=== PATIENT | female | born 1980 | race Caucasian/White ===

== ENCOUNTER 2018-04-08 13:13 | Emergency (ER) | payer OTHER ==
[~2018-04-08] VITALS: Ht 167.6 cm; Wt 72.6 kg
[~2018-04-08 13:13] MED LIST: ALPR.25; Atarax10 MG PO; CEPH250A PO; CETI5 PO; Cleocin HCl300 MG PO; FAMO10 PO; HEARTBURN RELI150 M1 PO; MULVITMINE PO; NICO14TP TOP; Naprosyn500 MG PO; OMEP20ER PO; Pepcid20 MG
== END 2018-04-08 13:24 ==
LOC: ER 13:13
DX: F15.129 Other stimulant abuse with intoxication, unspecified (principal); Z88.0 Allergy status to penicillin; Z87.891 Personal history of nicotine dependence
CPT/HCPCS: 99283

== ENCOUNTER 2018-11-09 14:16 | Emergency (ER) | payer OTHER ==
[~2018-11-09] VITALS: Ht 167.6 cm; Wt 77.1 kg
[~2018-11-09 14:16] MED LIST changes: +CHLO5
== END 2018-11-09 15:30 ==
LOC: ER 14:16
DX: F10.129 Alcohol abuse with intoxication, unspecified (principal); Z76.5 Malingerer [conscious simulation]; Z88.0 Allergy status to penicillin; Z87.891 Personal history of nicotine dependence
CPT/HCPCS: 99284

== ENCOUNTER 2019-12-09 20:30 | Emergency (ER) | payer OTHER ==
[~2019-12-09] VITALS: Ht 162.6 cm; Wt 65.8 kg
[2019-12-10] MEDS ORDERED: Robaxin-750750 MG PO (00:04)
== END 2019-12-10 00:20 | disposition home or self-care (01) ==
LOC: ER 20:30
DX: G89.29 Other chronic pain (principal); M54.6 Pain in thoracic spine; F17.210 Nicotine dependence, cigarettes, uncomplicated; Z88.0 Allergy status to penicillin
CPT/HCPCS: 99282